=== PATIENT | female | born 1960 | race Caucasian/White ===

== ENCOUNTER 2016-10-14 08:14 | Outpatient (CLI) | payer BC | END 2016-10-14 09:06 | LOC: D.MAMMO 08:14 | DX: Z12.31 Encounter for screening mammogram for malignant neoplasm of breast (principal) ==

== ENCOUNTER 2019-12-23 14:30 | Outpatient (CLI) | payer BC | END 2019-12-23 23:59 | disposition home or self-care (01) | LOC: D.MAMMO 14:30 | PROVIDERS: ATTEND Family Medicine | DX: Z12.31 Encounter for screening mammogram for malignant neoplasm of breast (principal) ==